=== PATIENT | female | born 1940 | race Caucasian/White ===

== ENCOUNTER 2022-08-26 14:24 | Inpatient (IN) | payer MEDICARE ==
[~2022-08-26] VITALS: Ht 154.9 cm; Wt 79.3 kg
[2022-08-26] VITALS (25 sets, daily range): BP systolic 129–175; BP diastolic 71–136
[~2022-08-26 14:24] MED LIST: ASPI81CH PO; ATEN50; CLIM.025TP; LEVSOD50 PO; LOSA50 PO; Lovastatin20 MG PO; METO50 PO; THYR60; [UNRECOGNIZED DRUG - CODE]
[2022-08-26 15:10] LABS: BASOPHILS ABSOLUTE AUTO 0.05 K/mm3 (0.00-0.23); BASOPHILS PERCENT AUTO 1 % (0-2); EOSINOPHILS ABSOLUTE AUTO 0.22 K/mm3 (0.00-0.68); EOSINOPHILS PERCENT AUTO 3 % (0-6); Hematocrit 42.7 % (33.0-51.0); Hemoglobin 14.3 g/dL (11.5-16.0); IMMATURE GRAN ABSOLUTE AUTO 0.02 K/mm3 (0.00-0.10); IMMATURE GRAN PERCENT AUTO 0 % (0-1); LYMPHOCYTES PERCENT AUTO 29 % (21-46); MONOCYTES ABSOLUTE AUTO 0.58 K/mm3 (0.16-1.47); MONOCYTES PERCENT AUTO 8 % (4-13); Mean Corpuscular HGB 28.8 pg (26.0-34.0); Mean Corpuscular HGB Conc 33.5 g/dL (31.5-36.5); Mean Corpuscular Volume 86 fL (80-100); Mean Platelet Volume 10.4 fL (9.1-12.4); NEUTROPHILS ABSOLUTE AUTO 4.21 K/mm3 (1.96-9.15); NEUTROPHILS PERCENT AUTO 59 % (41-73); Platelet Count 243 K/mm3 (150-400); RDW Coefficient Variation 14.2 % (11.7-14.2); RDW Standard Deviation 44.5 fL (35.1-46.3); Red Blood Cell Count 4.97 M/mm3 (3.80-5.20); White Blood Cell Count 7.18 K/mm3 (4.00-11.30)
[2022-08-26 15:37] LABS: Alanine Aminotransfer (ALT/SGP 24 U/L (12-78); Albumin, Blood 3.8 g/dL (3.4-5.0); Albumin/Globulin Ratio 1.2 (0.8-1.8); Alk Phos 58 U/L (50-136); Anion Gap 7 mmol/L (6-16); Aspartate Aminotrans (AST/SGOT 27 U/L (12-37); Bilirubin, Total 0.3 mg/dL (0.1-1.0); Blood Urea Nitrogen 19 mg/dL (8-24); Bun/Creatinine Ratio 24.2 (12.0-20.0); CHOL/HDL RATIO 2.3; CO2, Blood 25 mmol/L (21-32); Chloride, Blood 107 mmol/L (98-108); Cholesterol 139 mg/dL (50-200); Creatinine, Blood 0.79 mg/dL (0.40-1.00); Globulin, Blood 3.2 g/dL (2.2-4.0); Glomerular Filtration Rate 76 (60-); Glucose, Blood 132 mg/dL (70-99); HDL Cholesterol 60 mg/dL (>39); LDL/HDL RATIO 1.1; Low Density Lipoprotein Chol 65 mg/dL (0-110); Magnesium, Blood 2.1 mg/dL (1.6-2.4); Potassium, Blood 3.7 mmol/L (3.5-5.5); Sodium, Blood 139 mmol/L (136-145); Triglycerides 71 mg/dL (30-160); Very Low Density Lipoprot Chol 14 mg/dL (6-32)
--- NOTE | 2022-08-26 17:53 | NUR ---
ADMIT/SHIFT SUMMARY PT ARRIVED TO ICU 15 VIA BED AT 1615 S/P FISHER PURSE SEINE. PT IS AWAKE, ALERT, AND ORIENTED. PT DENIES SOB OR CHEST PAIN UPON ARRIVAL, AND AT THIS TIME. PT WITH ANGIOSEAL PLACED IN FISHER PURSE SEINE TO RIGHT FEMORAL ARTERY. RIGHT FEMORAL VENOUS SHEATH REMAINS IN PLACE WITH NS TKO INFUSING. ORDERS RECIEVED TO PULL SHEATH AT [address] THOMAS. SITE IS SOFT, NONTENDER, AND NO HEMATOMA NOTED. INSTRUCTED PT TO LAY FLAT WITHOUT ANY HIP FLEXION, PT VERBALIZED UNDERSTANDING. PT VOIDED WITH BEDPAN THIS EVENING. PT FAMILY AT BEDSIDE UPON ARRIVAL. VITAL SIGNS STABLE. WILL CONTINUE TO MONITOR AND REPORT OFF TO ONCOMING RN.
[2022-08-26 18:45] LABS: Creatine Kinase MB 16.6 ng/mL (0.0-3.6); Creatine Kinase MB Index 8.2 (0.0-4.0)
--- NOTE | 2022-08-26 20:30 | NUR ---
ASSUMPTION OF CARE NOTE PT POST CARDIAC CATH AFTER SC TODAY. PT LAYING FLAT WITH VENOUS SHEATH STILL IN PLACE. HAIR TINTER AT BEDSIDE DISCUSSING PLANS FOR FURTHER CARDIAC INTERVENTIONS, CABG VS. MULTIPLE STENTS. PLAN FOR REPEAT CATH TOMORROW TO EVALUATE. VENOUS SHEATH TO BE REMOVED THIS SHIFT. 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
[2022-08-27] VITALS (21 sets, daily range): BP systolic 94–151; BP diastolic 61–88
[2022-08-27 02:09] LABS: Albumin, Blood 3.6 g/dL (3.4-5.0); Anion Gap 6 mmol/L (6-16); Blood Urea Nitrogen 14 mg/dL (8-24); Bun/Creatinine Ratio 19.9 (12.0-20.0); CO2, Blood 25 mmol/L (21-32); Calcium, Blood 9.3 mg/dL (8.5-10.1); Chloride, Blood 112 mmol/L (98-108); Glomerular Filtration Rate 87 (60-); Glucose, Blood 104 mg/dL (70-99); Phosphorus, Blood 3.4 mg/dL (2.5-4.9); Potassium, Blood 3.8 mmol/L (3.5-5.5); Sodium, Blood 143 mmol/L (136-145)
[2022-08-27 02:14] LABS: Mean Platelet Volume 10.5 fL (9.1-12.4)
[2022-08-27 02:18] LABS: Creatine Kinase MB 54.9 ng/mL (0.0-3.6); Creatine Kinase MB Index 11.1 (0.0-4.0)
[2022-08-27 02:20] LABS: BASOPHILS ABSOLUTE AUTO 0.05 K/mm3 (0.00-0.23); BASOPHILS PERCENT AUTO 1 % (0-2); EOSINOPHILS ABSOLUTE AUTO 0.11 K/mm3 (0.00-0.68); EOSINOPHILS PERCENT AUTO 1 % (0-6); Hematocrit 44.8 % (33.0-51.0); Hemoglobin 14.8 g/dL (11.5-16.0); IMMATURE GRAN ABSOLUTE AUTO 0.02 K/mm3 (0.00-0.10); IMMATURE GRAN PERCENT AUTO 0 % (0-1); LYMPHOCYTES ABSOLUTE AUTO 1.65 K/mm3 (0.84-5.20); LYMPHOCYTES PERCENT AUTO 19 % (21-46); MONOCYTES ABSOLUTE AUTO 0.77 K/mm3 (0.16-1.47); MONOCYTES PERCENT AUTO 9 % (4-13); Mean Corpuscular HGB 28.5 pg (26.0-34.0); Mean Corpuscular Volume 86 fL (80-100); NEUTROPHILS ABSOLUTE AUTO 5.92 K/mm3 (1.96-9.15); NEUTROPHILS PERCENT AUTO 70 % (41-73); Platelet Count 221 K/mm3 (150-400); RDW Coefficient Variation 14.2 % (11.7-14.2); RDW Standard Deviation 45.5 fL (35.1-46.3); Red Blood Cell Count 5.19 M/mm3 (3.80-5.20); White Blood Cell Count 8.52 K/mm3 (4.00-11.30)
--- NOTE | 2022-08-27 06:35 | NUR ---
SHIFT SUMMARY PT DID NOT GET MUCH REST OVERNIGHT. NEEDED TO USE THE COMMODE SEVERAL TIMES AND WAS INTERUPPTED BY LAB, IMAGING, AND CARES. PIVOTS TO BEDSIDE COMMODE WELL WITH NURSE ASSIST. VENOUS SHEATH REMOVED AT BEGINNING OF SHIFT. NO HEMATOMA OR NOTICABLE BLEEDING, PULSE REMAINS STRONG BELOW PUNCTURE SITE. PLAN FOR CARDIAC CATH TODAY. NPO AT 0900 AND RESTARTING FLUIDS AT THIS TIME WELL. CK CONTINUES TO UPTREND OVERNIGHT. ALL OTHER VSS.
--- NOTE | 2022-08-27 07:31 | NUR ---
ASSUMED CARE OF PATIENT AND RECEIVED REPORT FROM MEAT HOSTESS NURSE. NEURO: PATIENT IS WAKING UP, A&OX4, PLEASANT. CARDIAC: BP 144/73, SR WITH HR IN 70'S. CAP REFILL <3 SECONDS. RADIAL AND PEDAL PULSES STRONG. RESP: O2 SATURATION IN HIGH 90'S ON RA. LINES: PERIPHERAL TO RFA AND LFA, NOTHING INFUSING AT THIS TIME.
--- NOTE | 2022-08-27 13:48 | NUR ---
PT TO CREATIVE COORDINATOR: On hospital bed with label paster staff.
--- NOTE | 2022-08-27 16:16 | NUR ---
PATIENT BACK FROM OUTREACH COUNSELOR TO ICU15. REPORTS SHE IS DOING WELL AT THIS TIME AND WISHES TO CALL HER FOR UPDATE. REPORT RECEIVED FROM OUTREACH COUNSELOR NURSES. TR BAND IN PLACE TO R WRIST. WILL MONITOR AND MANAGE PER PROTOCOL.
--- NOTE | 2022-08-27 18:04 | NUR ---
REPORT CALLED TO [facility] NURSE SHOAIB. ROOM STILL BEING CLEANED, WILL AWAIT CALL FROM PCU FOR TRANSFER WHEN APPROPRIATE.
--- NOTE | 2022-08-27 18:05 | NUR ---
TR BAND DEFLATION STARTED AT 1634, ONE HOUR AFTER PLACEMENT PER PROTOCOL, WITH 2mL AIR RELEASE Q15M. WITH 2mL REMAINING, SITE HAD MINIMAL OOZING. AT THIS TIME, DR. THOMAS WAS MAKING ROUNDS AND RE-INFLATED THE TR BAND WITH VERBAL ORDER TO WAIT 2 HOURS (@ 1999) BEFORE ATTEMPTING TO DEFLATE AGAIN.
--- NOTE | 2022-08-27 18:53 | NUR ---
SHIFT SUMMARY NEURO: PATIENT REMAINED A&OX4 THROUGHOUT ENTIRETY OF SHIFT. SHE WAS ABLE TO AMBULATE TO BEDSIDE COMMODE WITH MINIMAL ASSISTANCE. CARDIAC: BP REMAINED STABLE THROUGH ENTIRETY OF SHIFT. SR WITH HR IN 60'S-70'S. PATIENT TO AUTO BODY PAINTER AT 1345 AND BACK AT 1550 FOLLOWING MEASUREMENTS AND IMAGING FOR RECOMMENDED CABG. TR BAND IN PLACE WITH NEW VERBAL ORDER TO START DEFLATION AT 2000 (SEE PREVIOUS NOTE). RESP: PT REMAINED ON ROOM AIR THROUGH THE ENTIRETY OF THE SHIFT WITH SPO2 IN HIGH 90'S. GI: RESUMED CARDIAC DIET FOLLOWING AUTO BODY PAINTER PROCEDURE WITH 100% OF MEAL TAKEN. TOLERATED WELL. 2 BM'S TODAY. : PATIENT VOIDS INDEPENDENTLY AT BEDSIDE COMMODE. CLEAR YELLOW URINE. LINES: 20G TO [place] WITH NORMAL SALINE RUNNING. PATIENT TRANSFERRED TO [facility] WITH BELONGINGS AT 1830.
--- NOTE | 2022-08-28 00:48 | NUR ---
TR BAND RECOVERY PT REFUSING RECOVERY VITAL SIGNS. 2010: 1mL REMOVED WITH NO OOZING OR BLEEDING PRESENT. NO BRUISING OR HEMATOMA PRESENT, SITE IS SOFT, PT DENIES TENDERNESS. SpO2> 92% ON RIGHT INDEX FINGER. PT DENIES NUMBNESS/TINGLING/PAIN IN HAND. ARM BOARD IN PLACE. 2019: 1mL REMOVED WITH NO OOZING OR BLEEDING PRESENT. NO BRUISING OR HEMATOMA PRESENT, SITE IS SOFT, PT DENIES TENDERNESS. SpO2> 92% ON RIGHT INDEX FINGER. PT DENIES NUMBNESS/TINGLING/PAIN IN HAND. ARM BOARD IN PLACE. 2034: 1mL REMOVED WITH NO OOZING OR BLEEDING PRESENT. NO BRUISING OR HEMATOMA PRESENT, SITE IS SOFT, PT DENIES TENDERNESS. SpO2> 92% ON RIGHT INDEX FINGER. PT DENIES NUMBNESS/TINGLING/PAIN IN HAND. ARM BOARD IN PLACE. 2104: 2mLs REMOVED WITH NO OOZING OR BLEEDING PRESENT. NO BRUISING OR HEMATOMA PRESENT, SITE IS SOFT, PT DENIES TENDERNESS. SpO2> 92% ON RIGHT INDEX FINGER. PT DENIES NUMBNESS/TINGLING/PAIN IN HAND. ARM BOARD IN PLACE. 2144: 1mL REMOVED, TR BAND NOW EMPTY WITH NO OOZING OR BLEEDING PRESENT. NO BRUISING OR HEMATOMA PRESENT, SITE IS SOFT, PT DENIES TENDERNESS. SpO2> 92% ON RIGHT INDEX FINGER. PT DENIES NUMBNESS/TINGLING/PAIN IN HAND. ARM BOARD IN PLACE. 5: TR BAND REMOVED WITH NO OOZING OR BLEEDING PRESENT. NO BRUISING OR HEMATOMA PRESENT, SITE IS SOFT, PT DENIES TENDERNESS. SpO2> 92% ON RIGHT INDEX FINGER. PT DENIES NUMBNESS/TINGLING/PAIN IN HAND. SITE CLEANED WITH CHLORHEXIDINE, TEGADERM APPLIED, ARM BOARD IN PLACE.
[2022-08-28 03:08] VITALS: BP 145/82
--- NOTE | 2022-08-28 04:40 | NUR ---
SHIFT SUMMARY SEE PREVIOUS NOTE. PT A&Ox4, CALLS AND COMMUNICATES NEEDS APPROPRIATELY. PT REFUSED RECOVERY VITAL SIGNS, AGREED TO Q4H VS. BP STABLE, SINUS 70's, DENIES CP/PRESSURE. SpO2> 92% RA, DENIES SOB. R RADIAL SITE REMAINS UNCHANGED FROM PREVIOUS NOTE, AMRBOARD IN PLACE. PT SBA TO BATHROOM, CONTINENT OF URINE AND BOWEL. NO OTHER EVENTS, WILL REPORT TO ONCOMING RN.
[2022-08-28 08:03] VITALS: BP 131/79
[2022-08-28] MEDS ORDERED: TICA90TA PO (11:58)
[2022-08-28] MEDS ORDERED: PANT20 PO (11:59)
[2022-08-28 12:30] VITALS: BP 134/95
== END 2022-08-28 12:31 | disposition home or self-care (01) | DRG 246 ==
LOC: ER 14:24 → PCU 14:36 → ICUW 14:36 → PCU 08-27 18:22
PROVIDERS: Internal Medicine Cardiovascular Disease; Student in an Organized Health Care Education/Training Program; ADMIT Internal Medicine
PROC: 027034Z Dilation of Coronary Artery, One Artery with Drug-eluting Intraluminal Device, Percutaneous Approach (ICD-10-PCS; principal; 2022-08-26)
PROC: 02C03ZZ Extirpation of Matter from Coronary Artery, One Artery, Percutaneous Approach (ICD-10-PCS; 2022-08-26)
PROC: 02F03ZZ Fragmentation in Coronary Artery, One Artery, Percutaneous Approach (ICD-10-PCS; 2022-08-26)
PROC: 4A023N7 Measurement of Cardiac Sampling and Pressure, Left Heart, Percutaneous Approach (ICD-10-PCS; 2022-08-26)
PROC: B2111ZZ Fluoroscopy of Multiple Coronary Arteries using Low Osmolar Contrast (ICD-10-PCS; 2022-08-26)
PROC: B2151ZZ Fluoroscopy of Left Heart using Low Osmolar Contrast (ICD-10-PCS; 2022-08-26)
PROC: B241ZZ3 Ultrasonography of Multiple Coronary Arteries, Intravascular (ICD-10-PCS; 2022-08-26)
PROC: 02HV33Z Insertion of Infusion Device into Superior Vena Cava, Percutaneous Approach (ICD-10-PCS; 2022-08-26)
PROC: B2111ZZ Fluoroscopy of Multiple Coronary Arteries using Low Osmolar Contrast (ICD-10-PCS; 2022-08-27)
PROC: 4A033BC Measurement of Arterial Pressure, Coronary, Percutaneous Approach (ICD-10-PCS; 2022-08-27)
PROC: B241ZZ3 Ultrasonography of Multiple Coronary Arteries, Intravascular (ICD-10-PCS; 2022-08-27)
DX: T82.855A Stenosis of coronary artery stent, initial encounter (principal); I21.19 ST elevation (STEMI) myocardial infarction involving other coronary artery of inferior wall; I25.10 Atherosclerotic heart disease of native coronary artery without angina pectoris; I10 Essential (primary) hypertension; E78.5 Hyperlipidemia, unspecified; Z66 Do not resuscitate; E03.9 Hypothyroidism, unspecified; M17.9 Osteoarthritis of knee, unspecified; E11.9 Type 2 diabetes mellitus without complications; Z79.82 Long term (current) use of aspirin; Z79.899 Other long term (current) drug therapy; Z87.891 Personal history of nicotine dependence; Z90.710 Acquired absence of both cervix and uterus; Z90.722 Acquired absence of ovaries, bilateral; Z95.5 Presence of coronary angioplasty implant and graft
CPT/HCPCS: 36415; 71045; 76937; 80053; 80061; 80069; 82550; 82553; 82947; 83036; 83735; 84443; 84484; 85025; 85347; 86850; 86900; 86901; 92978; 92979; 93005; 93010; 93306; 93458; 93571; 93572; 96374; 99152; 99153; 99285-25; A9270; C1725; C1753; C1760; C1761; C1769; C1874; C1887; C1894; C9606; J0153; J0461; J1265; J1644; J2250; J3010; J7030; J7040; J7050; Q9967

== ENCOUNTER 2023-01-17 22:37 | Emergency (ER) | payer MEDICARE ==
[~2023-01-17] VITALS: Ht 154.9 cm; Wt 77.1 kg
[~2023-01-17 22:37] MED LIST changes: +PANT20 PO; +TICA90TA PO
[2023-01-17 23:56] LABS: BASOPHILS ABSOLUTE AUTO 0.07 K/mm3 (0.00-0.23); BASOPHILS PERCENT AUTO 1 % (0-2); EOSINOPHILS ABSOLUTE AUTO 0.38 K/mm3 (0.00-0.68); EOSINOPHILS PERCENT AUTO 5 % (0-6); Hemoglobin 11.9 g/dL (11.5-16.0); IMMATURE GRAN ABSOLUTE AUTO 0.02 K/mm3 (0.00-0.10); IMMATURE GRAN PERCENT AUTO 0 % (0-1); LYMPHOCYTES ABSOLUTE AUTO 1.42 K/mm3 (0.84-5.20); LYMPHOCYTES PERCENT AUTO 18 % (21-46); MONOCYTES ABSOLUTE AUTO 0.78 K/mm3 (0.16-1.47); MONOCYTES PERCENT AUTO 10 % (4-13); Mean Corpuscular HGB 29.2 pg (26.0-34.0); Mean Corpuscular HGB Conc 33.1 g/dL (31.5-36.5); Mean Corpuscular Volume 88 fL (80-100); NEUTROPHILS ABSOLUTE AUTO 5.22 K/mm3 (1.96-9.15); NEUTROPHILS PERCENT AUTO 66 % (41-73); Platelet Count 303 K/mm3 (150-400); RDW Coefficient Variation 15.4 % (11.7-14.2); RDW Standard Deviation 49.8 fL (35.1-46.3); Red Blood Cell Count 4.08 M/mm3 (3.80-5.20); White Blood Cell Count 7.89 K/mm3 (4.00-11.30)
[2023-01-18 00:07] VITALS: BP 164/96
[2023-01-18 00:17] LABS: Albumin, Blood 3.8 g/dL (3.4-5.0); Albumin/Globulin Ratio 1.2 (0.8-1.8); Bilirubin, Total 0.5 mg/dL (0.1-1.0); Bun/Creatinine Ratio 16.5 (12.0-20.0); Calcium, Blood 9.3 mg/dL (8.5-10.1); Creatinine, Blood 0.85 mg/dL (0.40-1.00); Globulin, Blood 3.3 g/dL (2.2-4.0); Magnesium, Blood 2.2 mg/dL (1.6-2.4); Potassium, Blood 4.1 mmol/L (3.5-5.5); Total Protein, Blood 7.1 g/dL (6.4-8.2)
[2023-01-18] MEDS ORDERED: AMLO5 PO (00:38)
== END 2023-01-18 00:52 | disposition home or self-care (01) ==
LOC: ER 22:37
PROVIDERS: Emergency Medicine
DX: I10 Essential (primary) hypertension (principal); Z79.899 Other long term (current) drug therapy; Z79.82 Long term (current) use of aspirin; E03.9 Hypothyroidism, unspecified; E11.9 Type 2 diabetes mellitus without complications
CPT/HCPCS: 80053; 83735; 85025; 93005; 93010; 99283-25